=== PATIENT | male | born 1950 | race Caucasian/White ===

== ENCOUNTER 2019-12-09 10:10 | Outpatient (CLI) | payer MEDICARE, SELFPAY ==
--- NOTE | ~2019-12-09 | CT_ITS ---
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 The dose-length product (DLP) was 1038.49 mGy-cm. Automated exposure control and iterative reconstruction technique were employed. COMPARISON: 09/16/2019, 05/15/2019; PET/CT, 06/26/2018 FINDINGS: CHEST CT: A 2.2 x 1.1 cm nodule of the right upper lobe previously measured 2.6 x 1.6 cm. A left subclavian Por t-A-Cath ends with its tip in the distal superior vena cava. A subtle stable groundglass opacity of t he right lower lobe is likely infectious or inflammatory. There is no pleural effusion or pneumothora x. No pathologically enlarged thoracic lymph nodes are identified. The heart size is normal. There ar e changes of coronary artery bypass grafting. Suture anchors are noted in the right humeral head. The re are healing fractures of the left 10th and 11th ribs. There is moderate thoracic spondylosis. ABDOMEN/PELVIS CT: There are hypoattenuating lesions in the right hepatic lobe measuring 8 mm and 5 mm which are not def initely seen on the comparison examination (images 103 and 106, respectively). Punctate calcification s of the spleen likely reflect old granulomatous disease. The pancreas and adrenal glands are normal. There is mild wall thickening of the gallbladder of unclear significance. The right kidney is unrema rkable. There is a stable 2.3 cm exophytic lesion of the left kidney lower pole. When compared to the noncontrast PET CT, no definite internal enhancement is identified. The previously described suspect ed peripheral nodular enhancing component is no longer identified. No pathologically enlarged abdomin al or pelvic lymph nodes are identified. There is calcified atherosclerosis of the aorta and many of the other arteries. There is no free intraperitoneal gas or evidence of bowel obstruction. There is s evere lumbar spondylosis. IMPRESSION: 1. Right upper lobe mass with interval decrease in size, consistent with treatment response. 2. Subtle indeterminate hypoattenuating lesions of the right hepatic lobe. Metastatic disease is a co nsideration. Attention on subsequent imaging is recommended. Reviewed, dictated and finalized at location [facility]. IMPRESSION: 1. Right upper lobe mass with interval decrease in size, consistent with treatm ent response. 2. Subtle indeterminate hypoattenuating lesions of the right hepatic lobe. [place] static disease is a consideration. Attention on subsequent imaging is recommend ed.
[2019-12-09 10:33] LABS: Estimated Glomerular Filt Rate 55
== END 2019-12-09 10:11 | disposition home or self-care (01) ==
PROVIDERS: PCP Internal Medicine; Visit Provider Internal Medicine Hematology & Oncology
DX: C34.91 Malignant neoplasm of unspecified part of right bronchus or lung (principal)
CPT/HCPCS: 36415; 71260; 74177; Q9967

== ENCOUNTER 2020-03-02 07:11 | Outpatient (CLI) | payer MEDICARE, SELFPAY ==
--- NOTE | ~2020-03-02 | CT_ITS ---
EXAMINATION: CT chest abdomen pelvis w con DATE: 03/02/2020 07:41 INDICATION: Restaging of non-small cell right lung cancer TECHNIQUE: Computed tomography (CT) of the chest, abdomen, and pelvis was performed with 100 cc Omnip aque 350 intravenous contrast. Automated exposure control and iterative reconstruction technique were employed. Exam dose: 1154.47 mGy-cm total exam DLP. COMPARISON: 12/09/2019 CT chest abdomen pelvis FINDINGS: CHEST CT: Status post sternotomy. Borderline heart size. Prominent coronary artery calcification. There is grea t vessel and thoracic aortic calcification. The ascending aorta measures 4.3 cm diameter, the aortic arch 3.1 cm diameter and the descending thoracic aorta 2.9 cm diameter. No thoracic aortic dissection . No hilar or mediastinal mass lesion or lymphadenopathy. There is an approximately 2 x 3 cm mass in the central right upper lung field, relatively stable in s ize since 12/09/2019. ABDOMEN/PELVIS CT: There are up to 14 hypoattenuating masses of the liver, some of which have increased in size, includi ng 2 right hepatic lesions visualized on image 103 of 256 on series 3, increased in size from 6 mm to 27 mm and from 10 mm to 25 mm since 12/09/2019, and multiple new lesions ranging from several millime ters to 1.7 cm. The findings are consistent with increased hepatic metastatic disease. There is a small hypoattenuating mass of the spleen which has diminished from approximately 9 mm to 7 mm since 12/09/2019. No pancreatic mass lesion, calcification or ductal dilatation. Normal morphology of the adrenal gland s. There is a stable 2.3 cm exophytic mass of the posterior aspect of the lower pole of the left kidney, measuring 54 Hounsfield units. No urinary tract calculus or hydroureteronephrosis. There is atherosclerotic calcification of the abdominal aorta but no aneurysm. No intraperitoneal or retroperitoneal or pelvic mass lesion or adenopathy is noted otherwise. There is a mild amount of juana e fluid in the dependent lower pelvis. Normal appendix. There is minimal diverticulosis of the left and right colon. No evidence of divertic ulitis. No bowel obstruction, bowel wall thickening or pneumoperitoneum. There is prostate enlargement. There is diffuse bladder wall thickening. There are bilateral fat-containing inguinal hernias. Diffuse idiopathic skeletal hyperostosis of the thoracic spine. Prominent degenerative disc disease at L4-5. No suspicious osteolytic or osteoblastic lesions are noted. Avascular necrosis of both femoral heads. IMPRESSION: Increased hepatic metastatic disease since 12/09/2019 Stable right lung mass Stable 2.3 cm left renal mass Reviewed, dictated and finalized at [facility]. Reviewed, dictated and finalized at location [facility].
== END 2020-03-02 07:12 | disposition home or self-care (01) ==
LOC: ANHIMG 07:13
PROVIDERS: PCP Internal Medicine; Visit Provider Internal Medicine Hematology & Oncology
DX: C34.91 Malignant neoplasm of unspecified part of right bronchus or lung (principal); D35.02 Benign neoplasm of left adrenal gland
CPT/HCPCS: 71260; 74177; Q9967

== ENCOUNTER 2020-05-23 20:51 | Inpatient (IN) | payer MEDICARE, SELFPAY ==
[2020-05-23 20:00] VITALS: BP 115/59; PULSE 64; RESP 16; TEMP 36.7; O2SAT 100; BMI 28.6
--- NOTE | 2020-05-23 20:42 | ADMGEN ---
This patient, Ever Freedman, was admitted to Medical Room 254-01 at 1910. Patient/family oriented to hospital policies and general routines including ID bracelet, bed and alarms, visiting hours, pain management, procedures, bathroom and other care routines, personal items, smoking policy, room service/diet, and visiting hours. Valuables list has been completed. Information on how to activate the Rapid Response Team has been discussed. Patient/Family are encouraged to report perceived risks to care and to ask questions if they do not understand what they are told or what they should do.
--- NOTE | 2020-05-23 21:16 | PM.IMHP ---
H&P: HPI History of Present Illness Date/Time: 05/23/20 21:16 Chief complaint: GI Bleed/Supratherapeutic INR Narrative: Ever Freedman is a 69 year old male Who has a history of non-small cell carcinoma and is on Coumadin for atrial fibrillation. The patient stated that he was bleeding from his port this last Sunday. He also noticed that he was seeing darker stools. The patient was diagnosed with metastatic non-small cell carcinoma July 08, 2018. He was getting a maintenance treatment for this since August 2019 and he was placed on cyramza cycle 1. The patient went to [facility] because he was having some weakness and shortness of breath. The patient was due to have a chemo treatment on but his blood counts were so low that he could get a treatment. Patient's INR today was 8.0. The patient was given vitamin K and FFP at [facility]. Dr. Haley was notified per ED physician at [facility]. The ER doctor at [facility]'s Dr. Selwyn HIGHTOWER. Patient's hemoglobin was down to 7.4. Date of service 05/23/2020 Review of Systems Review of Systems: All systems reviewed & are unremarkable except as noted in HPI and below Constitutional: Constitutional: Reports as per HPI and Reports no additional constitutional complaints Eyes: Eyes: Reports as per HPI and Reports no additional eye complaints ENT: Reports system reviewed and no additional complaints, except as documented and Reports Normal hearing present Cardiovascular: Cardiovascular: Reports no additional cardiovascular complaints Respiratory: Respiratory: Reports no additional respiratory complaints and Reports no additional respiratory complaints Gastrointestinal: Gastrointestinal: Reports as per HPI and Reports no additional gastrointestinal complaints Musculoskeletal: Musculoskeletal: Reports no additional musculoskeletal complaints Integumentary/Breasts: Skin/Breast: Reports system reviewed and no additional complaints, except as docu and Reports as per HPI Neurologic: Reports system reviewed and no additional complaints, except as documented, Reports as per HPI and Reports Normal hearing present Psychiatric: Psychiatric: Reports no additional psychiatric complaints and Reports as per HPI Endocrine: Endocrine: Reports no additional endocrine complaints Hematologic/Lymphatic: Hematologic/Lymphatic: Reports no additional hematologic/lymphatic complaints Allergic/Immunologic: Allergic/Immunologic: Reports no additional allergic/immunologic complaints [facility] Past Medical History Medical History (Updated 05/23/20 @ 21:33 by Nguyen Ta NP) Acute sinusitis, unspecified Atrial fibrillation paroxysmal on chronic Coumadin Port-A-Cath CAD (coronary artery disease) COPD (chronic obstructive pulmonary disease) DM2 (diabetes mellitus, type 2) Frequent nocturnal awakening 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 Surgical History Surgical History (Updated 05/23/20 @ 21:29 by Nguyen Ta NP) H/O arthroscopic knee surgery History of arthroscopic procedure on shoulder History of tonsillectomy and adenoidectomy S/P CABG (coronary artery bypass graft) x3 Family History Family History (Updated 05/23/20 @ 21:29 by Nguyen Ta NP) Father Hypertension Family history of elevated blood lipids Cerebrovascular accident, Onset Age: 62 Family history of malignant neoplasm Mother Hypertension Family history of osteoarthritis Patient's mother is in good health Family history of elevated blood lipids Cerebrovascular accident Family history of kidney disease Sibling Heart disease Social History Social History (Updated 05/23/20 @ 21:31 by Nguyen Ta NP) Social History: the patient lives with his in [facility] and she is a durable power employment attorney for healthcare. The patient is a full code. He has 3 children. 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 He was smoking at least a pa
[2020-05-23 22:21] LABS: Basophils Percent Auto 0.6 % (0.2-1.2); Eosinophils Percent Auto 0.2 % (0-4.4); Hematocrit 23.1 % (42.0-52.0); Hemoglobin 7.3 g/dL (14.0-18.0); Immature Granulocyte Absolute 0.02 K/mm3 (0.00-0.031); Immature Granulocyte Percent A 0.3 % (0-0.5); Lymphocytes Absolute Auto 1.15 K/mm3 (0.9-3.2); Lymphocytes Percent Auto 17.9 % (18.3-44.2); Mean Corpuscular HGB Conc 31.6 g/dl (32-36); Mean Corpuscular Hemoglobin 28.4 pg (26-34); Mean Corpuscular Volume 89.9 fl (80-100); Mean Platelet Volume 10.7 fl (7.4-10.4); Monocytes Absolute Auto 0.8 K/mm3 (0.1-0.6); Monocytes Percent Auto 12.9 % (2.6-8.5); Neutrophils Absolute Auto 4.4 K/mm3 (1.3-6.7); Neutrophils Percent Auto 68.1 % (45.5-73.1); Nucleated Red Blood Cells Absolute Auto 0.1 K/mm3 (0.0-0.012); Nucleated Red Blood Cells Perc 1.4 % (0.0-0.2); Platelet Count Result 123 k/mm3 (150-375); Red Blood Count 2.57 M/mm3 (4.6-6.20); Red Cell Distribution Width 18.1 % (11.5-14.5); White Blood Count 6.4 K/mm3 (4.5-10.0)
[2020-05-23] MEDS: MELATONIN 5 MG TABLET PO (22:31)
[2020-05-23] MEDS: ATORVASTATIN 20 MG TABLET PO (22:31)
[2020-05-23] MEDS: POTASSIUM CHLORIDE 20 MEQ TABLET.ER 40 MEQ PO (22:31)
[2020-05-23] MEDS: PANTOPRAZOLE SODIUM IV 40 MG VIAL IV PUSH (22:31)
[2020-05-23 22:33] LABS: Lactic Acid Reflex 0.9 mmol/L (0.7-2.1)
[2020-05-23 22:34] LABS: INR 1.7; Prothrombin Time 19.2 Seconds (11.1-14.7)
[2020-05-23 23:09] VITALS: PULSE 68
[2020-05-24] VITALS (11 sets, daily range): BP systolic 105–146; BP diastolic 51–81; PULSE 60–94; RESP 15–20; TEMP 36.6–36.9; O2SAT 95–100
[2020-05-24 06:19] LABS: Basophils Percent Auto 0.3 % (0.2-1.2); Eosinophils Percent Auto 0.2 % (0-4.4); Hematocrit 23.4 % (42.0-52.0); Hemoglobin 7.4 g/dL (14.0-18.0); Immature Granulocyte Absolute 0.02 K/mm3 (0.00-0.031); Immature Granulocyte Percent A 0.3 % (0-0.5); Lymphocytes Absolute Auto 1.02 K/mm3 (0.9-3.2); Lymphocytes Percent Auto 15.8 % (18.3-44.2); Mean Corpuscular HGB Conc 31.6 g/dl (32-36); Mean Corpuscular Hemoglobin 28.5 pg (26-34); Mean Platelet Volume 10.4 fl (7.4-10.4); Monocytes Absolute Auto 0.8 K/mm3 (0.1-0.6); Monocytes Percent Auto 12.5 % (2.6-8.5); Neutrophils Absolute Auto 4.6 K/mm3 (1.3-6.7); Neutrophils Percent Auto 70.9 % (45.5-73.1); Nucleated Red Blood Cells Absolute Auto 0.1 K/mm3 (0.0-0.012); Nucleated Red Blood Cells Perc 1.2 % (0.0-0.2); Platelet Count Result 124 k/mm3 (150-375); Red Cell Distribution Width 18.6 % (11.5-14.5); White Blood Count 6.5 K/mm3 (4.5-10.0)
[2020-05-24 06:34] LABS: Anion Gap 5 mmol/L (8-16); Blood Urea Nitrogen 30 mg/dL (9-20); Carbon Dioxide 30 mmol/L (22-30); Chloride 101 mmol/L (98-107); Estimated CRCL calculation 55 ml/min; Estimated Glomerular Filt Rate 60; Glucose 100 mg/dL (75-110); Potassium 3.1 mmol/L (3.4-5.0); Sodium 136 mmol/L (137-145)
[2020-05-24 07:54] LABS: INR 1.4; Prothrombin Time 16.9 Seconds (11.1-14.7)
[2020-05-24] MEDS: AMIODARONE HCL 200 MG TABLET PO (09:17)
[2020-05-24] MEDS: PANTOPRAZOLE SODIUM IV 40 MG VIAL IV PUSH ×2 (09:19→20:57)
[2020-05-24] MEDS: BUMETANIDE 1 MG TABLET 4 MG PO (09:19)
[2020-05-24] MEDS: POTASSIUM CHLORIDE 20 MEQ TABLET.ER 40 MEQ PO ×2 (09:19→17:34)
[2020-05-24] MEDS: PREGABALIN (*CRX) 75 MG CAPSULE PO ×2 (09:19→17:34)
--- NOTE | 2020-05-24 09:56 | WPDGICN ---
Assessment and Plan Assessment and plan (1) Melena: Code(s): K92.1 - Melena Status: Acute Assessment and Plan: will proceed with egd and colonoscopy tomorrow inr reversed with FFP and vit K continue with PPI (2) Coumadin toxicity: Code(s): T45.511A - Poisoning by anticoagulants, accidental (unintentional), initial encounter Status: Acute Assessment and Plan: treated (3) GI bleed: Code(s): K92.2 - Gastrointestinal hemorrhage, unspecified Status: Acute Assessment and Plan: from coumadin toxicity no more signs of bleeding now but we need to proceed with scopes tomorrow (4) Acute blood loss anemia: Code(s): D62 - Acute posthemorrhagic anemia Status: Acute Assessment and Plan: transfuse if hb<7, continue to monitor (5) Non-small cell cancer of right lung: Code(s): C34.91 - Malignant neoplasm of unspecified part of right bronchus or lung Status: Acute Assessment and Plan: he is seeing by oncologist (6) COPD (chronic obstructive pulmonary disease): Code(s): J44.9 - Chronic obstructive pulmonary disease, unspecified Status: Chronic (7) Port-A-Cath in place: Code(s): Z95.828 - Presence of other vascular implants and grafts Status: Chronic GI Consult Note Consult date/time: 05/24/20 09:56 Reason for consult: melena, GIB HPI: Ever Freedman is a 69 year old male with history of metastatic non-small cell carcinoma diagnosed Jun 2018 with last treatment about 3 weeks ago, also using Coumadin for atrial fibrillation for almost 2 years. He started bleeding from his port last Sunday and also had dark tarry stools. He went to [facility] because noted more shortness of breath than usual with weakness. INR was 8.0 and was given vitamin K and FFP at [facility]. Then transferred here for further medical care. Repeat INR 1.4, hemoglobin 7.4 (2 weeks ago was 11.6). He says that had egd and colonoscopy but over 5 years ago. He is feeling better now. He says the only thing different is that few days ago prescribed antibiotic for sinus. Review of Systems Constitutional: Constitutional: Reports fatigue, Denies headache(s) and Reports weakness Eyes: Eyes: Denies blurry vision ENT: Reports Normal hearing present, Denies headache(s) and Denies neck pain Cardiovascular: Cardiovascular: Denies chest pain and Denies dyspnea Respiratory: Respiratory: Reports dyspnea on exertion Gastrointestinal: Gastrointestinal: Reports melena Genitourinary: Genitourinary: Denies dysuria Musculoskeletal: Musculoskeletal: Denies neck pain Integumentary/Breasts: Skin/Breast: Denies dry skin Neurologic: Reports Normal hearing present, Denies headache(s) and Denies weakness Psychiatric: Psychiatric: Denies anxiety Endocrine: Endocrine: Denies change in body appearance Hematologic/Lymphatic: Comments: on coumadin Allergic/Immunologic: Allergic/Immunologic: Denies urticaria PMFSH Past Medical History Medical History (Updated 05/24/20 @ 10:02 by Adrian Davis MD) Acute blood loss anemia Acute sinusitis, unspecified Atrial fibrillation paroxysmal on chronic Coumadin Port-A-Cath CAD (coronary artery disease) COPD (chronic obstructive pulmonary disease) Coumadin toxicity DM2 (diabetes mellitus, type 2) Frequent nocturnal awakening 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 The patient is a full code. He has 3 children. He is retired from [employer] in the [employer]
[2020-05-24] MEDS: metOLazone 5 MG TABLET PO (10:21)
[2020-05-24] MEDS: amLODIPine BESYLATE 5 MG TABLET 10 MG PO (10:21)
[2020-05-24] MEDS: ACETAMINOPHEN 325 MG TABLET 650 MG PO (11:21)
[2020-05-24] MEDS: CENTRAL LINE FLUSH 10 ML IV PUSH ×2 (14:30→20:57)
--- NOTE | 2020-05-24 14:41 | PM.IMPN ---
Progress Note: A&P Assessment and Plan (1) Melena: Code(s): K92.1 - Melena Status: Acute Assessment and Plan: The patient reports dark stools. Dr. Davis is following and the patient will undergo EGD and colonoscopy tomorrow. Continue protonix IV BID. Warfarin on hold given concern for GI bleed. (2) Anemia: Code(s): D64.9 - Anemia, unspecified Status: Acute Assessment and Plan: Hb 7.3 and Hct 23.1 at presentation. Likely multifactorial and acute on chronic due to cancer, chemotherapy, active bleeding with supratherapeutic INR. He has required blood transfusion in the past. He was giving fresh frozen plasma and vitamin K at [facility] due to INR of 8 with active bleeding at presentation. Iron studies consistent with iron deficiency anemia and he received 1 dose of IV venofer. Vitamin B12 sufficient. Dr. Broussard is on board. Monitor H&H q6H and transfuse PRN to maintain Hb >7. (3) Supratherapeutic INR: Code(s): R79.1 - Abnormal coagulation profile Status: Acute Assessment and Plan: INR was 8.0 at [facility]. He was given FFP and vitamin K at [facility]. INR is 1.4 and PT 16.9. He reports that he typically takes 3mg M, W, F, Sat and 2mg T and Th. Warfarin is on hold at this time as he will undergo colonoscopy and EGD tomorrow. Resume warfarin and consider bridge with lovenox once fine from a GI standpoint. (4) Atrial fibrillation: Code(s): I48.91 - Unspecified atrial fibrillation Status: Chronic Assessment and Plan: Paroxysmal. He remains in sinus rhythm. Continue amiodarone. Warfarin was supratherapeutic and is on hold. Resume when appropriate from a GI standpoint. He will undergo EGD/colonoscopy tomorrow. (5) Chronic systolic (congestive) heart failure: Code(s): I50.22 - Chronic systolic (congestive) heart failure Status: Chronic Assessment and Plan: He has scant lower extremity edema but appears clinically compensated. Continue metolazone and bumetanide. Monitor daily weights and strict intake and output. (6) Mixed hyperlipidemia: Code(s): E78.2 - Mixed hyperlipidemia Status: Chronic Assessment and Plan: LFTs reviewed with elevated ALP, likely secondary to liver metastases. Continue atorvastatin. (7) Nonrheumatic aortic valve stenosis: Code(s): I35.0 - Nonrheumatic aortic (valve) stenosis Status: Chronic Assessment and Plan: Continue outpatient cardiology follow-up for surveillance. (8) Non-small cell cancer of right lung: Code(s): C34.91 - Malignant neoplasm of unspecified part of right bronchus or lung Status: Acute Assessment and Plan: With metastasis. He is on chemotherapy but could not undergo his treatment 05/20 due to anemia. He follows with Dr. Broussard who has been consulted. Input is appreciated. Continue outpatient chemotherapy. (9) COPD (chronic obstructive pulmonary disease): Code(s): J44.9 - Chronic obstructive pulmonary disease, unspecified Status: Chronic Assessment and Plan: Chronic with no acute issues. Continue symbicort in place of Breo Ellipta while inpatient. (10) Polyneuropathy: Code(s): G62.9 - Polyneuropathy, unspecified Status: Chronic Assessment and Plan: Continue prior to admission pregabalin. (11) Hypokalemia: Onset Date: ~05/24/20 Code(s): E87.6 - Hypokalemia Status: Resolved Assessment and Plan: Potassium 3.1. He takes 40mg PO BID. Continue PO potassium supplement and repeat BMP tomorrow. Subjective Date/time seen: 05/24/20 14:41 Mr. Freedman is a 69 y.o. male with PMH significant for metastatic non-small cell carcinoma, atrial fibrillation on warfarin which was supratherapeutic, CAD, COPD, HLD, and HTN who is seen in follow-up for anemia in the setting of supratherapeutic INR with rolando
[2020-05-24 14:51] LABS: Add Urine Microscopic? YES; Appearance Urine Clear (Clear); Bilirubin Urine Negative (Negative); Blood Urine 2+ (Negative); Color Urine Straw (Yellow); Glucose Urine UA Negative (Negative); Ketones Urine Negative (Negative); Leukocyte Esterase Ur Negative LEU/UL (Negative); Nitrate Urine Negative (Negative); Protein Urine Negative (Negative); RBC Urine 0-2 /hpf (0-2); Specific Grav Ur 1.008 (1.001-1.035); Squamous Epithelial Cell Urine Rare /hpf (Few); Urobilinogen Urine Negative mg/dL (<2.0)
[2020-05-24] MEDS: BISACODYL 5 MG TABLET EC 20 MG PO (17:34)
[2020-05-24] MEDS: PEG (High)/E-LYTE SOLN 4,000 ML BTL 4000 ML PO (17:35)
[2020-05-24 18:29] LABS: Hematocrit 26.5 % (42.0-52.0); Hemoglobin 8.4 g/dL (14.0-18.0)
[2020-05-24] MEDS: ATORVASTATIN 20 MG TABLET PO (20:57)
[2020-05-24] MEDS: MELATONIN 5 MG TABLET PO (20:57)
[2020-05-24 23:33] LABS: Hematocrit 23.8 % (42.0-52.0); Hemoglobin 7.7 g/dL (14.0-18.0)
[2020-05-25] VITALS (17 sets, daily range): BP systolic 86–123; BP diastolic 33–72; PULSE 52–77; RESP 14–21; TEMP 36.2–36.8; O2SAT 95–100
[2020-05-25] MEDS: MAGNESIUM CITRATE 300 ML BTL PO (05:12)
[2020-05-25] MEDS: CENTRAL LINE FLUSH 20 ML IV PUSH (05:13)
[2020-05-25] MEDS: CENTRAL LINE FLUSH 10 ML IV PUSH ×3 (05:13→20:09)
[2020-05-25 05:28] LABS: Hematocrit 21.8 % (42.0-52.0); Hemoglobin 7.1 g/dL (14.0-18.0)
[2020-05-25 05:48] LABS: Anion Gap 5 mmol/L (8-16); Blood Urea Nitrogen 24 mg/dL (9-20); Calcium 7.9 mg/dL (8.4-10.2); Carbon Dioxide 32 mmol/L (22-30); Chloride 96 mmol/L (98-107); Estimated CRCL calculation 48 ml/min; Estimated Glomerular Filt Rate 51; Glucose 105 mg/dL (75-110); Magnesium 1.6 mg/dL (1.6-2.3); Potassium 2.8 mmol/L (3.4-5.0); Sodium 133 mmol/L (137-145)
[2020-05-25] MEDS: MAGNESIUM SULF 1 GM/D5W 100 ML 1 GM/100 ML BAG IVPB (08:36)
[2020-05-25] MEDS: BUMETANIDE 1 MG TABLET 4 MG PO (08:37)
[2020-05-25] MEDS: AMIODARONE HCL 200 MG TABLET PO (08:37)
[2020-05-25] MEDS: POTASSIUM CHLORIDE 20 MEQ TABLET.ER 40 MEQ PO ×2 (08:37→17:18)
[2020-05-25] MEDS: amLODIPine BESYLATE 5 MG TABLET 10 MG PO (08:37)
[2020-05-25] MEDS: PANTOPRAZOLE SODIUM IV 40 MG VIAL IV PUSH (08:38)
[2020-05-25] MEDS: PREGABALIN (*CRX) 75 MG CAPSULE PO ×2 (08:38→17:17)
[2020-05-25] MEDS: ACETAMINOPHEN 325 MG TABLET 650 MG PO ×2 (08:48→21:41)
[2020-05-25] MEDS: metOLazone 5 MG TABLET PO (10:23)
[2020-05-25] MEDS: MAGNESIUM SULF 2 GM/WATER 50ML 2 GM/50 ML BAG IVPB (10:23)
--- NOTE | 2020-05-25 10:26 | PM.IMPN ---
Progress Note: A&P Assessment and Plan (1) Melena: Code(s): K92.1 - Melena Status: Acute Assessment and Plan: The patient reports dark stools, signs of acute bleed. Dr. Davis is following and the patient will undergo EGD and colonoscopy today. Continue protonix IV BID. Warfarin on hold given concern for GI bleed. (2) Anemia: Code(s): D64.9 - Anemia, unspecified Status: Acute Assessment and Plan: Acute blood loss anemia. Likely multifactorial and acute on chronic due to cancer, chemotherapy, active bleeding with supratherapeutic INR. He has required blood transfusion in the past. Hb 7.3 and Hct 23.1 at presentation. H&H today is 7.1/21.8%. He was giving fresh frozen plasma and vitamin K at [facility] due to INR of 8 with active bleeding at presentation. Iron studies consistent with iron deficiency anemia and he will receive 3 doses of IV venofer. Vitamin B12 sufficient. Dr. Broussard has been consulted who is his electrical installer/ oncologist continue Monitoring H&H q6H and transfuse PRN to maintain Hb >7. (3) Supratherapeutic INR: Code(s): R79.1 - Abnormal coagulation profile Status: Acute Assessment and Plan: INR was 8.0 at [facility]. He was given FFP and vitamin K at [facility]. INR is 1.4 and PT 16.9 yesterday. He reports that he typically takes Warfarin 3mg M, W, F, Sat and 2mg T and Th. Warfarin is on hold at this time as he will undergo colonoscopy and EGD today. Resume warfarin and consider bridge with lovenox once fine from a GI standpoint. (4) Atrial fibrillation: Code(s): I48.91 - Unspecified atrial fibrillation Status: Chronic Assessment and Plan: Paroxysmal. He remains in sinus rhythm on telemetry. Telemetry was discontinued. Continue amiodarone. Warfarin was supratherapeutic and is on hold. Resume when appropriate from a GI standpoint. Continue monitoring. (5) Chronic systolic (congestive) heart failure: Code(s): I50.22 - Chronic systolic (congestive) heart failure Status: Chronic Assessment and Plan: He has 2-3+ pitting lower extremity edema but the patient states it is his baseline and otherwise appears clinically compensated. Continue home metolazone and bumetanide. Monitor daily weights and strict intake and output. (6) Mixed hyperlipidemia: Code(s): E78.2 - Mixed hyperlipidemia Status: Chronic Assessment and Plan: LFTs reviewed with elevated ALP, likely secondary to liver metastases. Continue atorvastatin. (7) Nonrheumatic aortic valve stenosis: Code(s): I35.0 - Nonrheumatic aortic (valve) stenosis Status: Chronic Assessment and Plan: Continue outpatient cardiology follow-up for surveillance. (8) Non-small cell cancer of right lung: Code(s): C34.91 - Malignant neoplasm of unspecified part of right bronchus or lung Status: Acute Assessment and Plan: With metastasis. He is on chemotherapy but could not undergo his treatment 05/20 due to anemia. He follows with Dr. Broussard who has been consulted. Input is appreciated. Continue outpatient chemotherapy. (9) COPD (chronic obstructive pulmonary disease): Code(s): J44.9 - Chronic obstructive pulmonary disease, unspecified Status: Chronic Assessment and Plan: Chronic with no acute issues. Continue symbicort in place of Breo Ellipta while inpatient. (10) Polyneuropathy:
[2020-05-25 12:42] LABS: Hematocrit 23.1 % (42.0-52.0); Hemoglobin 7.5 g/dL (14.0-18.0)
[2020-05-25 12:58] LABS: Anion Gap 5 mmol/L (8-16); Blood Urea Nitrogen 23 mg/dL (9-20); Calcium 8.1 mg/dL (8.4-10.2); Carbon Dioxide 32 mmol/L (22-30); Chloride 97 mmol/L (98-107); Estimated CRCL calculation 44 ml/min; Estimated Glomerular Filt Rate 47; Glucose 118 mg/dL (75-110); Potassium 2.8 mmol/L (3.4-5.0); Sodium 134 mmol/L (137-145)
[2020-05-25 13:42] LABS: Magnesium 2.4 mg/dL (1.6-2.3)
--- NOTE | 2020-05-25 14:01 | PC.NURSE ---
Patient to GI lab via stretcher, IV intact and saline locked. Family aware and at bedside.
[2020-05-25] MEDS: LACTATED RINGERS 1,000 ML 150 ML IV CONT (14:32)
--- NOTE | 2020-05-25 14:34 | WPDANESEPPF ---
Anes - Initial Pre Proc Eval Procedure: Operation Date: 05/25/20 15:00 Proposed Procedures p Esophagogastroduodenoscopy & Colonoscopy - Adrian Davis MD Date/Time: 05/25/20 14:34 Surgeon: Celina Lanza PA-C Pre Op Diagnosis: GI Bleed/Supratherapeutic INR Patient Data Age: 69 Gender: M Height: 5 ft 10 in Weight: 92.4 kg Last Vital Signs Temp 36.2 C L 05/25/20 14:20 Pulse 62 05/25/20 14:20 Resp 18 05/25/20 14:20 BP 118/49 L 05/25/20 14:20 Pulse Ox 100 05/25/20 14:20 Allergies Allergy/AdvReac Type Severity Reaction Status Date / Time ciprofloxacin Allergy Severe hives Verified 05/25/20 14:17 gadobenic acid Allergy Severe Difficulty Verified 05/25/20 14:17 Breathing gemifloxacin Allergy Severe hives Verified 05/25/20 14:17 Iodinated Contrast Media Allergy Severe Rash Verified 05/25/20 14:17 iohexol Allergy Severe Hives Verified 05/25/20 14:17 [From CONTRAST - CT, XRAY] quetiapine AdvReac Severe Confusion Verified 05/25/20 14:17 Home Medications Medication Instructions Recorded Confirmed Type fluticasone furoate-vilanterol 1 inh INHALATION DAILY 06/10/19 05/23/20 History [Breo Ellipta] pregabalin [Lyrica] 75 mg PO BID 06/10/19 05/23/20 History atorvastatin 20 mg tablet 20 mg PO HS 11/19/19 05/23/20 History amiodarone 200 mg tablet 200 mg PO DAILY tablet 12/30/19 05/23/20 History lidocaine-prilocaine 2.5 %-2.5 % 1 applic TOPICAL .prn gm 12/30/19 05/23/20 History topical cream ondansetron HCl 4 mg tablet 4 mg PO Q6H PRN tablet 03/10/20 05/23/20 History bumetanide 2 mg tablet 4 mg PO DAILY 30 Days #60 tablet 03/29/20 05/23/20 Rx dexamethasone [Decadron] 4 mg PO BID 04/27/20 05/23/20 History metolazone 5 mg tablet 5 mg PO DAILY 30 Days #30 tablet 05/14/20 05/23/20 Rx potassium chloride 20 mEq 40 meq PO BID 90 Days #360 tablet 05/18/20 05/23/20 Rx tablet,extended release(part/cryst) amlodipine 10 mg PO DAILY 05/23/20 05/23/20 History warfarin [Jantoven] 2 mg PO DAILY 05/23/20 05/23/20 History warfarin [Jantoven] 3 mg PO DAILY 05/23/20 05/23/20 History Laboratory Tests 05/24/20 05/24/20 05/24/20 14:08 18:21 23:26 Hgb 8.4 g/dL L g/dL 7.7 g/dL L g/dL (14.0-18.0) (14.0-18.0) Hct 26.5 % L % 23.8 % L % (42.0-52.0) (42.0-52.0) Sodium Potassium Chloride Carbon Dioxide Anion Gap BUN Creatinine Estim Creat Clear Calc Estimated GFR Glucose Calcium Magnesium Urine Color Straw (Yellow) Urine Appearance Clear (Clear) Urine pH 7.0 (5.0-9.0) Ur Specific [place] 1.008 (1.001-1.035) Urine Protein Negative mg/dL mg/dL (Negative) Urine Glucose (UA) Negative mg/dL mg/dL (Negative) Urine Ketones Negative mg/dL mg/dL (Negative) Ur Blood (Man) 2+ H (Negative) Urine Nitrate Negative (Negative) Urine Bilirubin Negative (Negative) Urine Urobilinogen Negative mg/dL mg/dL (<2.0) Leukocyte Esterase Rfl Negative ERIC/UL ERIC/UL (Negative) Urine RBC 0-2 /hpf /hpf (0-2) Ur Squamous Epith Cells Rare /hpf /hpf (Few) Hyaline Casts 1-2 /lpf /lpf (None) 05/25/20 05/25/20 05/25/20 05:19 05:19 12:36 Hgb 7.1 g/dL L g/dL (14.0-18.0) Hct 21.8 % L % (42.0-52.0) Sodium 133 mmol/L L mmol/L 134 mmol/L L mmol/L (137-145) (137-145) Potassium 2.8 mmol/L L* mmol/L 2.8 mmol/L L* mmol/L (3.4-5.0) (3.4-5.0) Chloride 96 mmol/L L mmol/L 97 mmol/L L mmol/L (98-107) (98-107) Carbon Dioxide 32 mmol/L H mmol/L 32 mmol/L H mmol/L (22-30) (22-30) Anion Gap 5 mmol/L L mmol/L 5 mmol/L L mmol/L (8-16) (8-16) BUN 24 mg/dL H mg/dL 23 mg/dL H mg/dL (9-20) (9-20) Creati
[2020-05-25] MEDS: BENZOCAINE (*SP) 60 ML SPRAY CAN (HURRICAINE) 1 SPRAY MUCOUS MEM (14:54)
--- NOTE | 2020-05-25 15:56 | SUR.PHASEII ---
PT'S WATCH WITH A GREEN BAND REPLACED ONTO HIS LEFT WRIST.
--- NOTE | 2020-05-25 17:29 | PDONCCN ---
HPI - Date of Consult Date/Time: 05/25/20 17:29 Requesting Physician: Celina Lanza PA-C Primary Care Provider: Ismael Hurst Jr., MD - Consult Narrative Reason for consult: Metastatic non-small cell lung cancer Narrative: Ever Freedman is a 69 year old male This is the pleasant 69-year-old male with history of metastatic non-small cell lung cancer diagnosed in June 2018. He completed initial round of chemotherapy and then was started on second-line chemotherapy with Taxotere Cyramza on September 02, 2019 due to relapse of the disease. His last chemotherapy was on May 06, 2020. Patient also has a history of atrial fibrillation and has been taking Coumadin. He started having some bleeding from the port site and INR was checked level came back elevated at 13. Patient was told to stop Coumadin. He went to the ER at [facility] that showed INR of 8.0. He was having some dark stool as well as shortness of breath and weakness. He had EGD done today that showed gastritis and duodenal ulcer along with hiatal hernia. Colonoscopy came back unremarkable. Review of Systems - Review of Systems All systems reviewed & are unremarkable except as noted in HPI and bel - Neurologic Reports system reviewed and no additional complaints, except as documented, Reports hearing normal, Denies headache(s), Denies weakness PMFSH Medical History: Medical History (Last Reviewed 05/25/20 @ 14:35 by Delano Medrano MD) Acute blood loss anemia Acute sinusitis, unspecified Atrial fibrillation paroxysmal on chronic Coumadin Port-A-Cath CAD (coronary artery disease) COPD (chronic obstructive pulmonary disease) Coumadin toxicity DM2 (diabetes mellitus, type 2) Frequent nocturnal awakening Non-small cell cancer of right lung 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 Surgical History: Surgical History (Last Reviewed 05/25/20 @ 14:35 by Delano Medrano MD) H/O arthroscopic knee surgery History of arthroscopic procedure on shoulder History of tonsillectomy and adenoidectomy S/P CABG (coronary artery bypass graft) x3 Family History: Family History (Last Reviewed 05/25/20 @ 14:35 by Delano Medrano MD) Father Hypertension Family history of elevated blood lipids Cerebrovascular accident, Onset Age: 62 Family history of malignant neoplasm Mother Hypertension Family history of osteoarthritis Patient's mother is in good health Family history of elevated blood lipids Cerebrovascular accident Family history of kidney disease Sibling Heart disease - Social History Social History: Social History (Last Reviewed 05/25/20 @ 14:35 by Delano Medrano MD) Gender Identity: Gender identity (if verbalized by the patient): Male Alcohol Use: Alcohol intake: current Drinks per week: 2 Substance Use: Substance use: current Substance use type: marijuana Others: Spiritual care concerns: No Living Arrangements: Living arrangements: with family Oppucation/Education: Occupation/Education: retired Smoking Status: Smoking status: Former smoker Tobacco type: cigarettes, pipe, cigars Second hand tobacco smoke exposure: Yes Smoking end date: 08/27/15 Approximate Smoking End Date: 2015 Smoking Pack-years: Smoking packs per day: 1.5 Smoking cigarettes per day: 30.0 Years smoked: 40 Smoking pack-years: 60.00 Meds Home Medications Medication Instructions Recorded Confirmed Type fluticasone furoate-vilanterol 1 inh INHALATION DAILY 06/10/19 05/23/20 History [Breo Ellipta] pregabalin [Lyrica] 75 mg PO BID 06/10/19 05/23/20 History atorvastatin 20 mg tablet 20 mg PO HS 11/19/19 05/23/20 History amiodarone 200 mg tablet 200 mg PO DAILY tablet 12/30/19 05/23/20 History lidocaine-prilocaine 2.5 %-2.5 % 1 applic TOPICAL .prn gm 12/30/19 05/23/20 History topical cream ondansetron HCl 4 mg ta
[2020-05-25 18:52] LABS: Hematocrit 25.6 % (42.0-52.0); Hemoglobin 8.1 g/dL (14.0-18.0)
[2020-05-25 19:48] LABS: Iron 413 ug/dL (49-181)
[2020-05-25 19:58] LABS: Percent Iron Saturation 130 % (20-50)
[2020-05-25] MEDS: MELATONIN 5 MG TABLET PO (20:09)
[2020-05-25] MEDS: PANTOPRAZOLE 40 MG TABLET PO (20:09)
[2020-05-25] MEDS: ATORVASTATIN 20 MG TABLET PO (20:09)
[2020-05-26] VITALS (12 sets, daily range): BP systolic 101–125; BP diastolic 46–61; PULSE 51–67; RESP 16–20; TEMP 36.4–37.1; O2SAT 96–100
[2020-05-26 01:37] LABS: Hematocrit 21.5 % (42.0-52.0)
[2020-05-26 01:41] LABS: Hemoglobin 6.8 g/dL (14.0-18.0)
[2020-05-26 02:44] LABS: Anion Gap 5 mmol/L (8-16); Blood Urea Nitrogen 19 mg/dL (9-20); Calcium 7.7 mg/dL (8.4-10.2); Carbon Dioxide 31 mmol/L (22-30); Chloride 99 mmol/L (98-107); Estimated CRCL calculation 48 ml/min; Estimated Glomerular Filt Rate 51; Glucose 94 mg/dL (75-110); Potassium 2.9 mmol/L (3.4-5.0); Sodium 135 mmol/L (137-145)
[2020-05-26] MEDS: SODIUM CHLORIDE 0.9% IV 250 ML 30 ML IV CONT (03:50)
[2020-05-26] MEDS: CENTRAL LINE FLUSH 10 ML IV PUSH ×2 (03:50→13:32)
[2020-05-26] MEDS: BUMETANIDE 1 MG TABLET 4 MG PO (08:54)
[2020-05-26] MEDS: AMIODARONE HCL 200 MG TABLET PO (08:54)
[2020-05-26] MEDS: amLODIPine BESYLATE 5 MG TABLET 10 MG PO (08:54)
[2020-05-26] MEDS: PANTOPRAZOLE 40 MG TABLET PO (08:54)
[2020-05-26] MEDS: PREGABALIN (*CRX) 75 MG CAPSULE PO (08:54)
[2020-05-26] MEDS: POTASSIUM CHLORIDE 20 MEQ TABLET.ER 40 MEQ PO (08:54)
[2020-05-26 08:55] LABS: Hematocrit 26.1 % (42.0-52.0); Hemoglobin 8.5 g/dL (14.0-18.0); Mean Corpuscular HGB Conc 32.6 g/dl (32-36); Mean Corpuscular Hemoglobin 28.6 pg (26-34); Mean Corpuscular Volume 87.9 fl (80-100); Mean Platelet Volume 10.5 fl (7.4-10.4); Platelet Count Result 166 k/mm3 (150-375); Red Blood Count 2.97 M/mm3 (4.6-6.20); White Blood Count 9.4 K/mm3 (4.5-10.0)
[2020-05-26 09:07] LABS: Anion Gap 1 mmol/L (8-16); Blood Urea Nitrogen 18 mg/dL (9-20); Calcium 8.1 mg/dL (8.4-10.2); Carbon Dioxide 32 mmol/L (22-30); Chloride 100 mmol/L (98-107); Estimated CRCL calculation 51 ml/min; Estimated Glomerular Filt Rate 55; Glucose 96 mg/dL (75-110); Magnesium 2.1 mg/dL (1.6-2.3); Potassium 3.4 mmol/L (3.4-5.0); Sodium 133 mmol/L (137-145)
[2020-05-26] MEDS: metOLazone 5 MG TABLET PO (09:36)
--- NOTE | 2020-05-26 12:29 | WPDANESPN ---
Anes - Prog Note Post-Op Date/Time: 05/26/20 12:29 Cardiovascular status: normal Respiratory status: normal Airway patency: baseline Mental status: baseline Post-Op hydration status: normal Vital Signs: Last Vital Signs Temp 36.7 C 05/26/20 10:00 Pulse 56 L 05/26/20 10:00 Resp 18 05/26/20 10:00 BP 113/53 L 05/26/20 10:00 Pulse Ox 100 05/26/20 10:00 Pain Score (VAS): 0/10. Patient resting up at bedside at time of assessment, appears comfortable. No additional questions or concerns from patient at time of assessment. I/O: Intake & Output 05/25/20 05/26/20 05/26/20 23:59 07:59 15:59 Intake Total 1440 886 240 Output Total 650 500 Balance 790 386 240 Laboratory Tests 05/26/20 08:35 05/26/20 08:35 05/25/20 05/25/20 05/25/20 12:36 12:36 12:36 WBC RBC Hgb 7.5 L Hct 23.1 L MCV MCH MCHC RDW Plt Count MPV Sodium 134 L Potassium 2.8 L* Chloride 97 L Carbon Dioxide 32 H Anion Gap 5 L BUN 23 H Creatinine 1.50 H Estim Creat Clear Calc 44 Estimated GFR 47 L Glucose 118 H Calcium 8.1 L Magnesium 2.4 H Iron TIBC % Saturation Ferritin Vitamin B12 Blood Type Antibody Screen Crossmatch 05/25/20 05/25/20 05/25/20 18:25 18:25 18:25 WBC RBC Hgb 8.1 L Hct 25.6 L MCV MCH MCHC RDW Plt Count MPV Sodium Potassium Chloride Carbon Dioxide Anion Gap BUN Creatinine Estim Creat Clear Calc Estimated GFR Glucose Calcium Magnesium Iron 413 H TIBC 317 % Saturation 130 H Ferritin 217.00 Vitamin B12 824.0 Blood Type Antibody Screen Crossmatch 05/26/20 05/26/20 05/26/20 00:23 02:24 02:24 WBC RBC Hgb 6.8 L* Hct 21.5 L MCV MCH MCHC RDW Plt Count MPV Sodium 135 L Potassium 2.9 L Chloride 99 Carbon Dioxide 31 H Anion Gap 5 L BUN 19 Creatinine 1.40 H Estim Creat Clear Calc 48 Estimated GFR 51 L Glucose 94 Calcium 7.7 L Magnesium Iron TIBC % Saturation Ferritin Vitamin B12 Blood Type O Negative Antibody Screen Negative Crossmatch See Detail 05/26/20 05/26/20 05/26/20 08:35 08:35 08:35 WBC 9.4 RBC 2.97 L Hgb Cancelled 8.5 L Hct Cancelled 26.1 L MCV 87.9 MCH 28.6 MCHC 32.6 RDW 18.0 H Plt Count 166 MPV 10.5 H Sodium 133 L Potassium 3.4 Chloride 100 Carbon Dioxide 32 H Anion Gap 1 L BUN 18 Creatinine 1.30 Estim Creat Clear Calc 51 Estimated GFR 55 L Glucose 96 Calcium 8.1 L Magnesium 2.1 Iron TIBC % Saturation Ferritin Vitamin B12 Blood Type Antibody Screen Crossmatch 05/26/20 08:35 WBC RBC Hgb Hct MCV MCH MCHC RDW Plt Count MPV Sodium Potassium Chloride Carbon Dioxide Anion Gap BUN Creatinine Estim Creat Clear Calc Estimated GFR Glucose Calcium Magnesium Cancelled Iron TIBC % Saturation Ferritin Vitamin B12 Blood Type Antibody Screen Crossmatch Microbiology 05/23/20 20:46 Blood Blood Culture - Preliminary 05/23/20 20:45 Blood Blood Culture - Preliminary Post-procedural complaints: none Patient Feedback: Patient satisfied with anesthetic care.
[2020-05-26 13:48] LABS: Hematocrit 28.1 % (42.0-52.0); Hemoglobin 9.1 g/dL (14.0-18.0)
[2020-05-26 13:56] LABS: Potassium 3.2 mmol/L (3.4-5.0)
[2020-05-26] MEDS: POTASSIUM CHLORIDE 20 MEQ TABLET 40 MEQ PO (14:48)
--- NOTE | 2020-05-26 15:19 | WPDGIPROGNO ---
Progress Note: A&P Assessment and Plan (1) GI bleed: Code(s): K92.2 - Gastrointestinal hemorrhage, unspecified Status: Acute Assessment and Plan: resolved, he has small gastric ulcers bleeding in setting of supratherapeutic inr egd did not show stigmata of bleeding continue with ppi bid ok to resume coumadin in 2 days (2) Melena: Code(s): K92.1 - Melena Status: Acute Assessment and Plan: resolved (3) Coumadin toxicity: Code(s): T45.511A - Poisoning by anticoagulants, accidental (unintentional), initial encounter Status: Acute Assessment and Plan: reversed with ffp and vit k (4) Non-small cell cancer of right lung: Code(s): C34.91 - Malignant neoplasm of unspecified part of right bronchus or lung Status: Acute Assessment and Plan: he is seeing oncology (5) CAD (coronary artery disease): Code(s): I25.10 - Atherosclerotic heart disease of [place] coronary artery without angina pectoris Status: Chronic Subjective Date/time seen: 05/26/20 15:19 Interval history: no more bleeding, tolerating diet, no new events. EGD showed erosive gastritis with small non-bleeding gastric ulcers. Review of Systems Review of Systems: All systems reviewed & are unremarkable except as noted in HPI and below Exam Const: General: comfortable and no acute distress HENMT: General nose exam: Normal nares present Eyes: General: appearance normal, both eyes and all related structures Neck: Neck: no JVD Resp: Auscultation: clear to auscultation bilaterally Cardio: Rate: regular rate Rhythm: regular rhythm GI: Inspection: non-distended GI Palp: Yes Soft to palpation Skin: General skin exam: normal color Neuro: General: gait normal Speech: normal speech Extrem: General: normal to inspection Psych: Mental Status: mental status grossly normal Objective Data Vital Signs Vital Signs: Vital Signs - 24 hr 05/25/20 15:22 05/25/20 15:32 05/25/20 15:42 Temperature Pulse Rate 62 62 60 Respiratory Rate 17 17 16 Blood Pressure 86/34 L 97/33 L 110/39 L Pulse Oximetry 98 98 98 05/25/20 15:52 05/25/20 16:35 05/25/20 18:00 Temperature 97.7 F 97.5 F L Pulse Rate 62 58 L 68 Respiratory Rate 16 16 14 Blood Pressure 112/41 L 116/57 L 123/56 L Pulse Oximetry 98 97 100 05/25/20 18:41 05/25/20 20:00 05/25/20 22:00 Temperature 97.4 F L Pulse Rate 74 67 63 Respiratory Rate 21 H Blood Pressure 104/56 L Pulse Oximetry 100 05/26/20 00:00 05/26/20 04:00 05/26/20 04:12 Temperature 98.5 F 97.6 F 97.8 F Pulse Rate 58 L 55 L 55 L Respiratory Rate 20 18 20 Blood Pressure 102/52 L 101/48 L 101/48 L Pulse Oximetry 98 96 98 05/26/20 04:25 05/26/20 05:25 05/26/20 06:32 Temperature 98.2 F 97.6 F 98.8 F Pulse Rate 54 L 51 L 55 L Respiratory Rate 18 18 20 Blood Pressure 116/56 L 110/61 125/46 L Pulse Oximetry 96 97 98 05/26/20 08:00 05/26/20 08:54 05/26/20 10:00 Temperature 98.1 F Pulse Rate 59 L 66 56 L Respiratory Rate 18 Blood Pressure 113/53 L Pulse Oximetry 100 05/26/20 12:00 05/26/20 14:00 Temperature 97.5 F L Pulse Rate 65 67 Respiratory Rate 16 Blood Pressure 124/57 L Pulse Oximetry 100 Intake/Output Intake/Output: Intake & Output 05/23/20 05/24/20 05/25/20 05/26/20 23:59 23:59 23:59 23:59 Intake Total 1735 2240 1366 Output Total 650 500 Balance 1735 1590 866 Meds/Results Medications: Active Medications Generic Name Dose Route Start Last Admin Trade Name Freq PRN Reason Stop Dose Admin Acetaminophen 650 mg 05/24/20 11:04 05/25/20 21:41 Tylenol Tablet PO 650 mg Q6H PRN Administration Mild Pain (1-3) or Fever Amiodarone HCl 200 mg 05/24/20 09:00 05/26/20 08:54 Pacerone PO 200 mg DAILY ANNA Administration Amlodipine Besylate 10 mg 05/24/20 09:00 05/26/20 08:54 Norvasc PO 10 mg DAILY ANNA Administration Atorvastatin Calcium 20 mg
--- NOTE | 2020-05-26 16:58 | PM.DS ---
DS: Admitting Diagnosis Admitting Diagnosis Admitting Diagnosis: GI Bleed/Supratherapeutic INR DS: Discharge Diagnosis Discharge Diagnosis (1) Melena: Code(s): K92.1 - Melena Status: Acute Assessment and Plan: The patient reports dark stools, signs of acute bleed. Dr. Davis performed and he EGD yesterday which showed he has hiatal hernia, gastritis, and small ulcers in his stomach. GI believes this could be the cause of the patient's melena in the setting of a supratherapeutic INR. Recommends continuing PPI twice daily Colonoscopy was normal. States he can resume his anticoagulation in 3 days. Recommends to avoid any other than alcohol use. (2) Anemia: Code(s): D64.9 - Anemia, unspecified Status: Acute Assessment and Plan: Acute blood loss anemia. Likely multifactorial and acute on chronic due to cancer, chemotherapy, active bleeding with supratherapeutic INR. He has required blood transfusion in the past. Iron studies consistent with iron deficiency anemia and he will receive 3 doses of IV venofer. Vitamin B12 sufficient. Hgb 7.3 and Hct 23.1 at presentation. H&H today is 6.8/21%. He was given 1 unit of PRBCs. Recheck today H&H afterwards in it had improved in this afternoon his hemoglobin was 9.1, hematocrit 28%. His blood count remained stable. Dr. Broussard oncology has evaluated him and recommends continuing iron replacement therapy and if his H&H is stable to have him follow-up in the office in repeat his labs in a week. He feels comfortable with him restarting his anticoagulation but recommends him being started on Xarelto or Eliquis instead of Coumadin. Care coordination worked with his insurance and he will be placed on Xarelto 20 mg daily for DVT/PE prophylaxis in a patient with AFib. Told patient to restart this medication on Sunday the and continue taking it in the evening like he was with his Coumadin. Recheck a CBC in 1 week. Follow-up with Dr. Higginbotham as an outpatient. (3) Supratherapeutic INR: Code(s): R79.1 - Abnormal coagulation profile Status: Acute Assessment and Plan: INR was 8.0 at [facility]. He was given FFP and vitamin K at [facility]. INR is within normal range. Talked to Dr. Broussard who recommended starting him on Xarelto or Eliquis. He will be placed on Xarelto daily so he does not need to check his INRs regularly and prevent supratherapeutic issues especially while undergoing chemotherapy. (4) Atrial fibrillation: Code(s): I48.91 - Unspecified atrial fibrillation Status: Chronic Assessment and Plan: Paroxysmal. He remains in sinus rhythm on telemetry. Telemetry was discontinued. Continue amiodarone. He will be started on Xarelto daily. (5) Chronic systolic (congestive) heart failure: Code(s): I50.22 - Chronic systolic (congestive) heart failure Status: Chronic Assessment and Plan: He has 2-3+ pitting lower extremity edema but the patient states it is his baseline and otherwise appears clinically compensated. Continue home metolazone and bumetanide. (6) Mixed hyperlipidemia: Code(s): E78.2 - Mixed hyperlipidemia Status: Chronic Assessment and Plan: LFTs reviewed with elevated ALP, likely secondary to liver metastases. Continue atorvastatin. (7) Nonrheumatic aortic valve stenosis: Code(s): I35.0 - Nonrheumatic aortic (valve) stenosis Status: Chronic Assessment and Plan: Continue outpatient cardiology follow-up for surveillance. (8) Non-small cell cancer of
[2020-05-26] MEDS: HEPARIN SOD FLUSH 500 UNITS/5 ML SYRINGE IV PUSH (17:41)
--- NOTE | 2020-06-01 15:25 | PC.NURSE ---
Blood cx shows no growth
== END 2020-05-26 18:18 | disposition home or self-care (01) | DRG 378 ==
PROVIDERS: Family Medicine; Internal Medicine Gastroenterology; Internal Medicine Hematology & Oncology; Nurse Practitioner; Physician Assistant; Admitting Provider Internal Medicine; PCP Internal Medicine; Visit Provider Internal Medicine
PROC: 0DJ08ZZ Inspection of Upper Intestinal Tract, Via Natural or Artificial Opening Endoscopic (ICD-10-PCS; CPT 43235; principal; 2020-05-25 15:00)
DX: K25.4 Chronic or unspecified gastric ulcer with hemorrhage (principal); I50.22 Chronic systolic (congestive) heart failure; C34.91 Malignant neoplasm of unspecified part of right bronchus or lung; C79.9 Secondary malignant neoplasm of unspecified site; D62 Acute posthemorrhagic anemia; I11.0 Hypertensive heart disease with heart failure; K44.9 Diaphragmatic hernia without obstruction or gangrene; D64.81 Anemia due to antineoplastic chemotherapy; I25.10 Atherosclerotic heart disease of native coronary artery without angina pectoris; D63.0 Anemia in neoplastic disease; Z28.21 Immunization not carried out because of patient refusal; E87.6 Hypokalemia; R79.1 Abnormal coagulation profile; I48.91 Unspecified atrial fibrillation; E78.2 Mixed hyperlipidemia; I35.0 Nonrheumatic aortic (valve) stenosis; J44.9 Chronic obstructive pulmonary disease, unspecified; E11.9 Type 2 diabetes mellitus without complications; G62.0 Drug-induced polyneuropathy; T45.1X5S Adverse effect of antineoplastic and immunosuppressive drugs, sequela; Z79.01 Long term (current) use of anticoagulants; Z79.899 Other long term (current) drug therapy; Z87.891 Personal history of nicotine dependence; Z95.828 Presence of other vascular implants and grafts
CPT/HCPCS: 36415; 36430; 80048; 80053; 81001; 81002; 82607; 82728; 83540; 83550; 83605; 83735; 84132; 85014; 85018; 85025; 85027; 85610; 86850; 86900; 86901; 86923; 87040; 87081; 88305; 94640; A9270; C9113; G0378; J1642; J1756; J3475; J3480; J7050; J7120; P9016

== ENCOUNTER 2020-06-08 06:50 | Outpatient (RCR) | payer MEDICARE, SELFPAY ==
[2020-06-08] VITALS (7 sets, daily range): BP systolic 109–119; BP diastolic 58–69; PULSE 55–65; RESP 14–16; TEMP 36.2–36.8; O2SAT 98–100
[2020-06-08 07:26] LABS: Hematocrit 25.2 % (42.0-52.0)
[2020-06-08] MEDS: diphenhydrAMINE HCl CAP 25 MG CAPSULE PO (07:35)
[2020-06-08] MEDS: ACETAMINOPHEN 325 MG TABLET 650 MG PO (07:35)
[2020-06-08] MEDS: FUROSEMIDE INJ 40 MG/4 ML VIAL 20 MG IV PUSH (11:15)
[2020-06-08] MEDS: HEPARIN SOD FLUSH 500 UNITS/5 ML SYRINGE (13:54)
== END 2020-08-11 23:59 | disposition home or self-care (01) ==
LOC: ANHCPCTRAN 06:50
PROVIDERS: PCP Internal Medicine; Visit Provider Internal Medicine Hematology & Oncology
DX: C34.91 Malignant neoplasm of unspecified part of right bronchus or lung (principal)
CPT/HCPCS: 36415; 36430; 85014; 85018; 86850; 86900; 86901; 86923; 96374; A9270; J1940; J7050; P9016

== ENCOUNTER 2020-06-17 10:50 | Outpatient (CLI) | payer MEDICARE, SELFPAY ==
--- NOTE | ~2020-06-17 | CT_ITS ---
EXAMINATION: CT chest abdomen pelvis wo con EXAM DATE: 06/17/2020 11:42 INDICATION: Right-sided Non-small cell lung cancer. TECHNIQUE: Spiral CT of the chest, abdomen and pelvis was performed without contrast. Axial, villeda l and sagittal images were reviewed. Coronal maximum intensity pixel images of chest reviewed. The dose-length product (DLP) for this examination was 1128.35 mGy-cm. The exposure was tailored accordi ng to patient size (auto mA exposure control), and iterative reconstruction (ASIR) was used as additi onal dose reduction technique. Comparison is made to prior examination from 03/02/2020. FINDINGS: CHEST: There is mild increase in size of the there are sternotomy wires. There is a left-sided alejandro catheter. Right upper lobe mass measuring 2.9 x 1.6 cm in greatest axial dimensions versus 2.3 x 1.4 cm. Trace left pleural effusion. Tracheobronchial tree is patent. There is no mediastinal, hilar or axillary lymphadenopathy. There is no pneumothorax. The interventricular septum is perceptible , suggesting patient is anemic. Heart is normal in size. ABDOMEN PELVIS: There are approximately 15 liver metastases, with interval increase in size and numb er. For example the largest lesion measures 3.5 cm today versus 2.4 cm on prior study. There is been interval development of moderate amount of ascites. Some borderline sized periportal lymph nodes do n ot appear significantly changed. Pancreas, spleen, adrenal glands are unremarkable. There is an exophytic left renal lesion most likel y hemorrhagic cyst measuring 2.5 cm. Dense material or stones within a contracted gallbladder. There is no nephrolithiasis or hydronephrosis. There is mild prostatomegaly. Small bilateral inguinal fa t-containing hernias. The bladder is unremarkable. There is no retroperitoneal or pelvic lymphadeno adelaida. There is moderate scattered arteriosclerotic disease. The appendix is normal. The stomach and small bowel are unremarkable. There is expected amount of c olonic stool. No free intraperitoneal gas. Left 10th rib fracture with buttressing, possibly deve loping nonunion. There are no osteoblastic or osteolytic lesions identified. IMPRESSION: 1. Mild interval increase in right upper lobe mass size. 2. Increase in size and number of liver metastases. 3. Development of moderate ascites, trace left pleural effusions. Reviewed, dictated and finalized at location A.
[2020-06-17 11:13] LABS: Estimated Glomerular Filt Rate 26
== END 2020-06-17 10:51 | disposition home or self-care (01) ==
PROVIDERS: PCP Internal Medicine; Visit Provider Internal Medicine Hematology & Oncology
DX: C34.91 Malignant neoplasm of unspecified part of right bronchus or lung (principal); K76.89 Other specified diseases of liver; R18.8 Other ascites
CPT/HCPCS: 36415; 71250; 74176; 85025

== ENCOUNTER 2020-06-24 14:37 | Outpatient (CLI) | payer MEDICARE, SELFPAY ==
--- NOTE | ~2020-06-24 | US_ITS ---
EXAMINATION: US paracentesis abd w/image DATE: 06/24/2020 16:27 INDICATION: Ascites. TECHNIQUE: The procedure and its risks, benefits, and alternatives were discussed with the patient. P otential risks discussed included bleeding and infection. The skin was prepped and draped in sterile fashion. 1% lidocaine was used for local anesthesia. Under ultrasound guidance, a 5 Fr catheter with trochar was advanced into the ascites in the left lower quadrant. Fluid was aspirated. The catheter w as removed, and a dressing was applied. There were no immediate complications. FINDINGS: Ultrasound images demonstrate ascites and the catheter within the fluid. IMPRESSION: 1. Successful ultrasound-guided paracentesis yielding 5000 mL of cloudy, yellow fluid. Reviewed, dictated and finalized at location A. IMPRESSION: 1. Successful ultrasound-guided paracentesis yielding 5000 mL of cloudy, yello w fluid.
== END 2020-06-24 14:38 | disposition home or self-care (01) ==
LOC: ANHIMG 14:38
PROVIDERS: PCP Internal Medicine; Visit Provider Internal Medicine Hematology & Oncology
DX: R18.0 Malignant ascites (principal)
CPT/HCPCS: 36415; 49083; 80048; 80053; 85025

== ENCOUNTER 2020-07-01 07:28 | Outpatient (CLI) | payer MEDICARE, SELFPAY ==
--- NOTE | ~2020-07-01 | MR_ITS ---
EXAMINATION: MR brain/brain stem wo con EXAM DATE: 07/01/2020 09:41 INDICATION: non small cell cancer of RT lung . Prior contrast reaction to intravenous MultiHance inje ction in 2018. TECHNIQUE: Magnetic resonance imaging (MRI) of the brain/brain stem obtained without contrast. Ezekiel al T1, axial diffusion, gradient echo (T2*), T1, T2, FLAIR sequences obtained. Comparison is made to prior examination from 08/01/2018. FINDINGS: There are no areas of restricted diffusion to suggest acute infarction. There is no acute hemorrhage seen on the T2*, a hemosiderin sensitive sequence. No intraparenchymal brain mass lesion. There is mild periventricular and subcortical T2/FLAIR signal hyperintensity, nonspecific but probab ly related to small vessel ischemic disease (microangiopathy). There is mild prominence of the sulc i and ventricles related to cerebral atrophy. There are no extra-axial collections. Flow voids are seen in the cerebral arteries on the T2-weighted sequences consistent with their expected patency. The orbits are unremarkable. Soft tissue is unremarkable. Multiple right maxillary sinus retention cysts and probably small polyps. There is mild bilateral max illary and ethmoid mucoperiosteal thickening. There may be surgical changes from partial ethmoidectom ies. IMPRESSION: 1. No evidence of intracranial metastatic disease. 2. Chronic age related findings. 3. Mucoperiosteal thickening. Reviewed, dictated and finalized at location B. [employer]
[2020-07-01 08:29] LABS: Estimated Glomerular Filt Rate 38
== END 2020-07-01 07:29 | disposition home or self-care (01) ==
PROVIDERS: PCP Internal Medicine; Visit Provider Internal Medicine Hematology & Oncology
DX: C34.91 Malignant neoplasm of unspecified part of right bronchus or lung (principal)
CPT/HCPCS: 36415; 70551; 80048; 80053; 85025; 85610; 96367; 96375; 96413; J1100; J2405; J7050; J9201

== ENCOUNTER 2020-07-21 15:11 | Outpatient (CLI) | payer MEDICARE, SELFPAY ==
--- NOTE | ~2020-07-21 | US_ITS ---
EXAMINATION: US paracentesis abd w/image DATE: 07/21/2020 15:59 INDICATION: Ascites. TECHNIQUE: The procedure and its risks, benefits, and alternatives were discussed with the patient. P otential risks discussed included bleeding and infection. The skin was prepped and draped in sterile fashion. 1% lidocaine was used for local anesthesia. Under ultrasound guidance, a 5 Fr catheter with trochar was advanced into the ascites in the left lower quadrant. Fluid was aspirated. The catheter w as removed, and a dressing was applied. There were no immediate complications. FINDINGS: Ultrasound images demonstrate ascites and the catheter within the fluid. IMPRESSION: 1. Successful ultrasound-guided paracentesis yielding 5000 mL of cloudy, dark yellow fluid. Reviewed, dictated and finalized at location A. [employer]
== END 2020-07-21 15:12 | disposition home or self-care (01) ==
LOC: ANHIMG 15:11
PROVIDERS: PCP Internal Medicine; Visit Provider Internal Medicine Hematology & Oncology
DX: C34.90 Malignant neoplasm of unspecified part of unspecified bronchus or lung (principal); C78.7 Secondary malignant neoplasm of liver and intrahepatic bile duct
CPT/HCPCS: 36415; 49083; 80053; 85025